=== PATIENT | female | born 1995 | race Caucasian/White ===

== ENCOUNTER 2016-11-03 17:23 | Emergency (ER) | payer BC ==
[~2016-11-03] VITALS: Ht 170.2 cm; Wt 118.2 kg
[2016-11-03 17:26] VITALS: BP 123/69; TEMP 98.7
[2016-11-03] MEDS ORDERED: NORCO 325 MG-51 TAB PO (18:27)
[2016-11-03 19:04] VITALS: PULSE 80
== END 2016-11-03 19:04 | disposition home or self-care (01) ==
LOC: COL.ER 17:23
DX: S52.124A Nondisplaced fracture of head of right radius, initial encounter for closed fracture (principal); S80.211A Abrasion, right knee, initial encounter; V18.0XXA Pedal cycle driver injured in noncollision transport accident in nontraffic accident, initial encounter; Y92.414 Local residential or business street as the place of occurrence of the external cause
CPT/HCPCS: J2270; J2405